=== PATIENT | female | born 1970 | race Caucasian/White ===

== ENCOUNTER → 2017-12-15 | Outpatient (CLI) | payer OTHER ==
[2017-12-15 12:21] LABS: HIV 1/2 Antibodies Non-Reactive; HIV-1p24 Antigen Non-Reactive
== END ==
LOC: COL.LAB 11:11
PROVIDERS: Orthopaedic Surgery
DX: Z01.812 Encounter for preprocedural laboratory examination (principal); M17.12 Unilateral primary osteoarthritis, left knee